=== PATIENT | male | born 1975 | race African-American/Black ===

== ENCOUNTER 2016-09-14 16:05 | Emergency (ER) | payer OTHER ==
[~2016-09-14] VITALS: Ht 170.2 cm; Wt 82.5 kg
[~2016-09-14 16:05] MED LIST: AMOXICILLIN500 M1 PO; MOBIC7.5 MG PO; MUCINEX DM ER1 EACH PO; NO; PEN-VEE K,VEET500 MG PO; PROMETHAZINE HC25 M1 PO; TRAMADOL HCL50 MG PO
[2016-09-14 16:18] VITALS: BP 128/75
[2016-09-14] MEDS ORDERED: BACTRIM,SEPT1 TABLET PO (17:38)
[2016-09-14] MEDS ORDERED: PERCOCET 5/31 TABLET PO (17:38)
[2016-09-14] MEDS ORDERED: KEFLEX500 MG PO (17:38)
== END 2016-09-14 17:53 | disposition home or self-care (01) ==
LOC: EME 16:05 → EXP 16:05
PROC: 0H9FXZZ Drainage of Right Hand Skin, External Approach (ICD-10-PCS; principal; 2016-09-14)
DX: L02.511 Cutaneous abscess of right hand (principal); F17.200 Nicotine dependence, unspecified, uncomplicated
CPT/HCPCS: 99281; 99283

== ENCOUNTER 2016-09-17 06:05 | Emergency (ER) | payer OTHER ==
[~2016-09-17] VITALS: Ht 170.2 cm; Wt 81.8 kg
[~2016-09-17 06:05] MED LIST changes: +BACTRIM,SEPT1 TABLET PO; +KEFLEX500 MG PO; +PERCOCET 5/31 TABLET PO
[2016-09-17 06:29] VITALS: BP 124/76
== END 2016-09-17 06:30 | disposition home or self-care (01) ==
LOC: EME 06:05
DX: Z48.01 Encounter for change or removal of surgical wound dressing (principal); L02.511 Cutaneous abscess of right hand; F17.200 Nicotine dependence, unspecified, uncomplicated
CPT/HCPCS: 99281; 99282

== ENCOUNTER 2016-10-31 17:27 | Emergency (ER) | payer OTHER ==
[~2016-10-31] VITALS: Ht 170.2 cm; Wt 79.6 kg
[2016-10-31 18:30] LABS: EOSINOPHIL (%) 0.4 % (0-5); HEMATOCRIT 37.9 % (38.0-50.0); IMMATURE GRANULOCYTE (%) 0.2 % (0.0-0.7); IMMATURE GRANULOCYTE COUNT 0.1 K/uL; MCH 27.2 PG (29.0-34.0); MCHC 34.3 G/DL (30.0-36.0); MCV 79.3 FL (86-99); MEAN PLAT.VOLUME 9.1 uM^3 (9.0-12.4); MONOCYTE (%) 4.5 % (3-12); MONOCYTE COUNT 0.3 K/uL (0-0.8); NEUTROPHIL (%) 76.1 % (45-76); NEUTROPHIL COUNT 4.2 K/uL (1.8-6.4); PLATELET COUNT 167 K/uL (156-360); RBC DIS.WIDTH-CV 15.7 % (11.8-14.6); RBC DIS.WIDTH-SD 45.1 % (39-53); RED BLOOD COUNT 4.78 M/uL (4.00-5.50); WHITE BLOOD COUNT 5.6 K/uL (4.1-10.2)
[2016-10-31 18:53] LABS: CHLORIDE 101 mEq/L (99-109); POTASSIUM 3.8 mEq/L (3.7-5.4); SODIUM 135 mEq/L (136-147)
[2016-10-31 18:55] LABS: GLUCOSE 90 mg/dL (70-99)
[2016-10-31 18:56] LABS: ANION GAP 9 MEQ/L (2-14)
[2016-10-31 18:59] LABS: GFR ESTIMATE (CALCULATED) > 59 mL/min/
[2016-10-31 19:00] LABS: UREA NITROGEN (BUN) 12 mg/dL (9-23)
[2016-10-31 19:18] LABS: ADD MIUA? YES; BILIRUBIN NEGATIVE; BLOOD LARGE; COLOR AMBER ((YELLOW)); GLUCOSE (STRIP) NEGATIVE; KETONES NEGATIVE; LEUKOCYTES NEGATIVE; NITRITE NEGATIVE; PROTEIN (STRIP) 100; SPECIFIC GRAVITY 1.028 (1.000-1.030)
[2016-10-31 19:29] LABS: BACTERIA NONE SEEN /HPF; EPITHELIAL CELLS RARE /HPF; MUCUS 2+ /LPF; RED BLOOD CELLS TNTC /HPF (0-5); UCUL ADDED? NO
[2016-10-31] MEDS ORDERED: AUGMENTIN875 MG PO (19:36)
[2016-10-31] MEDS ORDERED: BACTRIM,SEPT1 TABLET PO (19:36)
[2016-10-31 19:54] VITALS: BP 179/54
== END 2016-10-31 19:55 | disposition left against medical advice (07) ==
LOC: EME 17:27
DX: L03.114 Cellulitis of left upper limb (principal); F11.10 Opioid abuse, uncomplicated; R50.9 Fever, unspecified; R00.0 Tachycardia, unspecified; F17.200 Nicotine dependence, unspecified, uncomplicated
CPT/HCPCS: 73090; 80048; 81003; 83605; 85025; 87040; 87106; 87149; 87149 59; 99281; 99285

== ENCOUNTER 2016-11-03 12:48 | Emergency (ER) | payer OTHER ==
[~2016-11-03] VITALS: Ht 170.2 cm; Wt 78.9 kg
[~2016-11-03 12:48] MED LIST changes: +AUGMENTIN875 MG PO
[2016-11-03 13:45] LABS: EOSINOPHIL (%) 1.2 % (0-5); EOSINOPHIL COUNT 0.1 K/uL (0-0.3); HEMATOCRIT 39.9 % (38.0-50.0); IMMATURE GRANULOCYTE (%) 0.2 % (0.0-0.7); IMMATURE GRANULOCYTE COUNT 0.1 K/uL; LYMPHOCYTE COUNT 1.4 K/uL (1.0-2.8); MCH 26.7 PG (29.0-34.0); MCHC 33.6 G/DL (30.0-36.0); MCV 79.5 FL (86-99); MEAN PLAT.VOLUME 9.6 uM^3 (9.0-12.4); MONOCYTE (%) 5.9 % (3-12); MONOCYTE COUNT 0.3 K/uL (0-0.8); NEUTROPHIL (%) 63.7 % (45-76); NEUTROPHIL COUNT 3.1 K/uL (1.8-6.4); PLATELET COUNT 216 K/uL (156-360); RBC DIS.WIDTH-CV 15.7 % (11.8-14.6); RBC DIS.WIDTH-SD 45.3 % (39-53); RED BLOOD COUNT 5.02 M/uL (4.00-5.50); WHITE BLOOD COUNT 4.9 K/uL (4.1-10.2)
[2016-11-03 13:55] LABS: CHLORIDE 105 mEq/L (99-109); POTASSIUM 4.1 mEq/L (3.7-5.4); SODIUM 138 mEq/L (136-147)
[2016-11-03 13:57] LABS: GLUCOSE 106 mg/dL (70-99)
[2016-11-03 13:58] LABS: ANION GAP 8 MEQ/L (2-14)
[2016-11-03 13:59] LABS: TOTAL BILIRUBIN 0.2 mg/dL (0.0-1.0)
[2016-11-03 14:00] LABS: ALKALINE PHOSPHATASE 70 IU/L (3-129)
[2016-11-03 14:01] LABS: GFR ESTIMATE (CALCULATED) > 59 mL/min/
[2016-11-03 14:02] LABS: UREA NITROGEN (BUN) 11 mg/dL (9-23)
[2016-11-03 15:49] VITALS: BP 127/71
== END 2016-11-03 15:50 | disposition home or self-care (01) ==
LOC: EME 12:48
PROVIDERS: Emergency Medicine
DX: L03.114 Cellulitis of left upper limb (principal); R79.89 Other specified abnormal findings of blood chemistry; F19.10 Other psychoactive substance abuse, uncomplicated; F17.200 Nicotine dependence, unspecified, uncomplicated
CPT/HCPCS: 80053; 83605; 85025; 87040; 99281; 99285; J2248; J7050

== ENCOUNTER 2017-03-30 00:30 | Emergency (ER) | payer OTHER ==
[~2017-03-30] VITALS: Ht 170.2 cm; Wt 79.8 kg
[2017-03-30] MEDS ORDERED: ULTRAM50 MG PO (01:48)
[2017-03-30] MEDS ORDERED: PEN-VEE K,VEET500 MG PO (01:48)
[2017-03-30 02:11] VITALS: BP 124/72
== END 2017-03-30 02:11 | disposition home or self-care (01) ==
LOC: EME 00:30
DX: K08.89 Other specified disorders of teeth and supporting structures (principal); G89.29 Other chronic pain; K02.9 Dental caries, unspecified; F17.200 Nicotine dependence, unspecified, uncomplicated
CPT/HCPCS: 99281; 99283